=== PATIENT | male | born 1985 | race Caucasian/White ===

== ENCOUNTER → 2022-03-21 | Outpatient (CLI) | payer MEDICARE ==
[2022-03-21 10:13] LABS: Basophils # (auto) 0 10 ^3/uL (0-0.2); Basophils % (auto) 0.7 % (0.0-2.0); Eosinophils # (auto) 0.1 10 ^3/uL (0-0.8); Eosinophils % (auto) 3.1 % (0.0-7.0); Hematocrit 42.8 % (41.0-53.0); Hemoglobin 14.9 g/dL (13.5-17.5); Lymphocytes # (auto) 1.5 10 ^3/uL (0.4-5.4); Lymphocytes % (auto) 30.8 % (10.0-50.0); Mean Corpuscular Hgb Conc. 34.9 g/dL (32.0-36.0); Monocytes # (auto) 0.3 10 ^3/uL (0-1.3); Monocytes % (auto) 5.9 % (0.0-12.0); Neutrophils # (auto) 2.9 10 ^3/uL (1.6-8.6); Neutrophils % (auto) 59.5 % (37.0-80.0); Nucleated Red Blood Cells % 0.4 %; Red Blood Cells 4.98 10^6/uL (4.5-5.90); Red Cell Distribution Width 12.7 % (11.8-14.3); White Blood Cell 4.9 10^3/uL (4.4-10.8)
[2022-03-21 10:43] LABS: BUN/Creatinine Ratio 13.9; Calcium 9.6 mg/dL (8.5-10.1); Potassium 4.4 mmol/L (3.5-5.1)
[2022-03-21 10:52] LABS: Beta HCG, Quantitative < 1 mlU/mL (< 1)
[2022-03-21 19:42] LABS: Lactate Dehydrogenase 162 U/L (87-241)
== END | disposition home or self-care (01) ==
LOC: LAB 09:54
PROVIDERS: ATTEND Urology
DX: N39.0 Urinary tract infection, site not specified (principal); N50.812 Left testicular pain
CPT/HCPCS: 36415; 80048; 82105; 83615; 84702; 85025

== ENCOUNTER 2022-04-20 09:53 | Emergency (ER) | payer MEDICARE, MEDICAID ==
[~2022-04-20] VITALS: Ht 177.8 cm; Wt 82.0 kg
[2022-04-20] MEDS ORDERED: HYDROmorphone HCL 2 MG/ML VL/or syr IM ONE (12:45)
[2022-04-20] MEDS ORDERED: PROMETHAZINE HCL 25 MG/ML 1ML IM ONE (12:45)
[2022-04-20] MEDS ORDERED: methylPREDNISolone SOD SUCC 125 MG/2 ML VL IM ONE (12:45)
[2022-04-20 12:54] VITALS: BP 150/96
== END 2022-04-20 13:17 | disposition home or self-care (01) ==
LOC: ER 09:57
DX: G89.29 Other chronic pain (principal); M54.59 Other low back pain; M54.2 Cervicalgia; Z88.0 Allergy status to penicillin
CPT/HCPCS: 96372; 99284; J1170; J2550; J2930

== ENCOUNTER 2022-04-21 04:26 | Emergency (ER) | payer MEDICARE, MEDICAID ==
[~2022-04-21] VITALS: Ht 182.9 cm; Wt 75.0 kg
[2022-04-21] MEDS ORDERED: MORPHINE SULFATE 4 MG/ML SYR/VIAL IM ONE (11:00)
[2022-04-21] MEDS ORDERED: ONDANSETRON ODT 4 MG TAB PO ONE (11:00)
[2022-04-21 11:09] VITALS: BP 144/78
== END 2022-04-21 11:17 | disposition left against medical advice (07) ==
LOC: ER 04:26
DX: G89.29 Other chronic pain (principal); M54.50 Low back pain, unspecified; R33.9 Retention of urine, unspecified; Z88.0 Allergy status to penicillin
CPT/HCPCS: 93005; 99283; J2270; Q0162